=== PATIENT | female | born 1935 | race Caucasian/White ===

== ENCOUNTER 2022-02-21 11:41 | Inpatient (IN) | payer MEDICARE ==
[~2022-02-21] VITALS: Ht 170.2 cm; Wt 53.0 kg
--- NOTE | 2022-02-21 13:20 | RAD ---
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 The femoral acetabular components are well-seated. The visuali zed osseous structures appear grossly intact. IMPRESSION: Right hip total arthroplasty. No acute findings. Electronically signed by: Silver Rutledge III, MD (02/21/2022 1:17 PM) VAIBHAV
[2022-02-21 13:48] LABS: BASO # 0.1 x10^3/uL (0.0-0.2); BASO % 0 % (0-3); EOS # 0.1 x10^3/uL (0.0-0.7); EOS % 0 % (0-3); HEMATOCRIT 37.6 % (36.0-47.0); HEMOGLOBIN 11.8 g/dL (12.0-15.5); LYMPH # 1.4 x10^3/uL (1.0-4.8); LYMPH % 10 % (24-48); MEAN CORPUSCULAR HEMOGLOBIN 26 pg (25-35); MEAN CORPUSCULAR HGB CONC 31 g/dL (31-37); MEAN CORPUSCULAR VOLUME 82 fL (79-100); MONO # 1.1 x10^3/uL (0.0-1.1); MONO % 8 % (0-9); NEUT # 11.7 x10^3/uL (1.8-7.7); NEUT % 82 % (31-73); PLATELET COUNT 516 x10^3/uL (140-400); RED BLOOD COUNT 4.59 x10^6/uL (3.50-5.40); RED CELL DISTRIBUTION WIDTH 17.7 % (11.5-14.5); WHITE BLOOD COUNT 14.4 x10^3/uL (4.0-11.0)
[2022-02-21 13:58] LABS: CALCIUM 8.8 mg/dL (8.5-10.1); CREATININE 0.4 mg/dL (0.6-1.0); GFR 151.3; POTASSIUM 3.1 mmol/L (3.5-5.1)
[2022-02-21 14:02] LABS: ALBUMIN 2.3 g/dL (3.4-5.0); ALBUMIN/GLOBULIN RATIO 0.7 (1.0-1.7); TOTAL BILIRUBIN 0.5 mg/dL (0.2-1.0); TOTAL PROTEIN 5.8 g/dL (6.4-8.2)
[2022-02-21] MEDS ORDERED: ONDANSETRON PF 4 MG/2 ML VIAL. IVP PRN (15:15)
[2022-02-21] MEDS ORDERED: fentaNYL PF VIAL 100 MCG/2 ML VIAL IVP PRN (15:15)
--- NOTE | 2022-02-21 15:18 | PHYS DOC ---
Past Medical History Additional Past Medical Histor: unable to obtain from patient Past Surgical History: Other Additional Past Surgical Histo: right ORIF Smoking Status: Never Smoker Alcohol Use: None Adult General Chief Complaint Chief Complaint: HIP PAIN HPI HPI Patient is a 86 year old female presenting to the emergency department for evaluation of failure to thrive she has been in and out of [facility] in a night rehab facility since the end of October and she had a hip fracture and she was sent home from [facility] recently and has been unable to ambulate and is a full assist per the son and he is worried about her memory as well as she is more confused. Patient is complaining of right hip pain today but there is no fall. Patient denies headache neck pain chest pain abdominal pain unilateral weakness numbness tingling or other symptoms. She is in no acute distress with normal vital signs. Review of Systems Review of Systems Constitutional: Denies fever or chills [] Eyes: Denies change in visual acuity, redness, or eye pain [] HENT: Denies nasal congestion or sore throat [] Respiratory: Denies cough or shortness of breath [] Cardiovascular: No additional information not addressed in HPI [] GI: Denies abdominal pain, nausea, vomiting, bloody stools or diarrhea [] : Denies dysuria or hematuria [] Musculoskeletal: Positive right hip joint pain Integument: Denies rash or skin lesions [] Neurologic: Denies headache, focal weakness or sensory changes [] All other systems were reviewed and found to be within normal limits, except as documented in this note. Physical Exam Physical Exam Constitutional: Chronically ill-appearing female in no acute distress HENT: Normocephalic, atraumatic, bilateral external ears normal, oropharynx mo ist, no oral exudates, nose normal. [] Eyes: PERRLA, EOMI, conjunctiva normal, no discharge. [] Neck: Normal range of motion, no tenderness, supple, no stridor. [] Cardiovascular:Heart rate regular rhythm, no murmur [] Lungs & Thorax: Bilateral breath sounds clear to auscultation [] Abdomen: Bowel sounds normal, soft, no tenderness, no masses, no pulsatile masses. [] Skin: Warm, dry, no erythema, no rash. [] Back: No tenderness, no CVA tenderness. [] Extremities: Pain to palpation and range of motion of right hip Neurologic: Alert and oriented X 3, normal motor function, normal sensory function, no focal deficits noted. [] Current Patient Data Lab Values Laboratory Tests Test 02/21/22 13:30 White Blood Count 14.4 x10^3/uL (4.0-11.0) H Red Blood Count 4.59 x10^6/uL (3.50-5.40) Hemoglobin 11.8 g/dL (12.0-15.5) L Hematocrit 37.6 % (36.0-47.0) Mean Corpuscular Volume 82 fL (79-100) Mean Corpuscular Hemoglobin 26 pg (25-35) Mean Corpuscular Hemoglobin Concent 31 g/dL (31-37) Red Cell Distribution Width 17.7 % (11.5-14.5) H Platelet Count 516 x10^3/uL (140-400) H Neutrophils (%) (Auto) 82 % (31-73) H Lymphocytes (%) (Auto) 10 % (24-48) L Monocytes (%) (Auto) 8 % (0-9) Eosinophils (%) (Auto) 0 % (0-3) Basophils (%) (Auto) 0 % (0-3) Neutrophils # (Auto) 11.7 x10^3/uL (1.8-7.7) H Lymphocytes # (Auto) 1.4 x10^3/uL (1.0-4.8) Monocytes # (Auto) 1.1 x10^3/uL (0.0-1.1) Eosinophils # (Auto) 0.1 x10^3/uL (0.0-0.7) Basophils # (Auto) 0.1 x10^3/uL (0.0-0.2) Prothrombin Time 18.0 SEC (11.7-14.0) H Prothrombin Time INR 1.5 (0.8-1.1) H Activated Partial Thromboplast Time 34 SEC (24-38) Sodium Level 140 mmol/L (136-145) Potassium Level 3.1 mmol/L (3.5-5.1) L Chloride Level 102 mmol/L (98-107) Carbon Dioxide Level 25 mmol/L (21-32) Anion Gap 13 (6-14) Blood Urea Nitrogen 6 mg/dL (7-20) L Creatinine 0.4 mg/dL (0.6-1.0) L Estimated GFR (Cockcroft-Gault) 151.3 BUN/Creatinine Ratio 15 (6-20) Glucose Level 107 mg/dL (70-99) H Calcium Level 8.8 mg/dL (8.5-10.1) Total Bilirubin 0.5 mg/dL (0.2-1.0) Aspartate Amino Transferase (AST) 19 U/L (15-37) Alanine Aminotransferase (ALT) 22 U/L (14-59) Alkaline Phosphatase 90 U/L (46-116) Troponin I High Sensitivity 15 ng/L (4-50) Total Protein 5.8 g/dL (6.4-8.2) L Albumin 2.3 g/dL (3.4-5.0) L Albumin/Globulin Ratio 0.7 (1.0-1.7) L Thyroid Stimulating Hormone (TSH) 3.207 uIU/mL (0.358-3.74) Laboratory Tests 02/21/22 13:30 Laboratory Tests 02/21/22 13:30 EKG EKG Irregularly irregular rhythm at 70 bpm with inverted T waves in inferior and anterior leads with no ST elevation or depression. Radiology/Procedures Radiology/Procedures [] Course & Med Decision Making Course & Med Decision Making Patient with leukocytosis but no urinalysis has returned yet. Patient is hypokalemic but her hip x-ray is normal. Given her abnormal work-up and failure to thrive we will plan for admission for further observation and treatment Dragon Disclaimer Dragon Disclaimer This electronic medical record was generated, in whole or in part, using a voice recognition dictation system. Departure Departure Impression: Primary Impression: Failure to thrive in adult Additional Impressions: Inability to ambulate due to multiple joints Leukocytosis Hypokalemia Disposition: ADMITTED INPATIENT Admitting Physician: HIMS Condition: STABLE Referrals: NO PCP (PCP) Problem Qualifiers AKSHAT CASTELLON DO Feb 21, 2022 15:18
[2022-02-21] MEDS ORDERED: POTASSIUM CL 40MEQ IN 0.9%NACL 1,000 ML IV ONE (16:30)
[2022-02-21 19:40] VITALS: BP 164/53
--- NOTE | 2022-02-21 20:08 | PDOC1 ---
History and Physical Date of Admission Date of Admission DATE: 02/21/22 TIME: 20:02 History of Present Illness History of Present Illness Ms. Carreno is a 86 year old female admit for right leg pain and fall risk, ER daignosis of failure to thrive, She thought initially this was [facility], but can get reoriented. Recent hip fracture and repair and she was sent home from [facility] rehab recently and has been unable to ambulate and is a full assist per the son and he is worried about her memory as well as she is more confused. She has right hip pain, adn this has been ongoign, likely, Xray looks stable. Current Problem List Problem List Problems Medical Problems: (1) Failure to thrive in adult Status: Acute (2) Hypokalemia Status: Acute (3) Inability to ambulate due to multiple joints Status: Acute (4) Leukocytosis Status: Acute Current Medications Current Medications Current Medications Ondansetron HCl (Zofran) 4 mg PRN Q8HRS PRN IVP NAUSEA/VOMITING; Start 02/21/22 at 15:15; Stop 02/22/22 at 15:14 Fentanyl Citrate (Fentanyl 2ml Vial) 50 mcg PRN Q1HR PRN IVP PAIN; Start 02/21/22 at 15:15; Stop 02/22/22 at 15:14 Potassium Chloride/Sodium Chloride 1,000 ml @ 75 mls/hr [id number] ONCE IV Last administered on 02/21/22at 18:37; Start 02/21/22 at 16:30; Stop 02/22/22 at 05:49 Allergies Allergies: Coded Allergies: Penicillins (Verified Allergy, Intermediate, 02/21/22) Sulfa (Sulfonamide Antibiotics) (Verified Allergy, Intermediate, 02/21/22) ROS Review of System Patient denies headache neck pain chest pain abdominal pain unilateral weakness numbness tingling or other symptoms. She is in no acute distress with normal vital signs. General: No: Chills, Night Sweats, Fatigue, Malaise, Appetite, Other PSYCHOLOGICAL ROS: No: Anxiety, Behavioral Disorder, Concentration difficultie, Decreased libido, Depression, Disorientation, Hallucinations, Hostility, Irritablity, Memory difficulties, Mood Swings, Obsessive thoughts, Physical abuse, Sexual abuse, Sleep disturbances, Suicidal ideation, Other Eyes: No Blurry vision, No Decreased vision, No Double vision, No Dry eyes, No Excessive tearing, No Eye Pain, No Itchy Eyes, No Loss of vision, No Photophobia, No Scotomata, No Uses contacts, No Uses glasses, No Other HEENT: No: Heacaches, Visual Changes, Hearing change, Nasal congestion, Nasal discharge, Oral lesions, Sinus pain, Sore Throat, Epistaxis, Sneezing, Snoring, Tinnitus, Vertigo, Vocal changes, Other Respiratory: No: Cough, Hemoptysis, Orthopnea, Pleuritic Pain, Shortness of breath, SOB with excertion, Sputum Changes, Stridor, Tachypnea, Wheezing, Other Cardiovascular: No Chest Pain, No Palpitations, No Orthopnea, No Paroxysmal Noc. Dyspnea, No Edema, No Lt Headedness, No Other Gastrointestinal: No Nausea, No Vomiting, No Abdominal Pain, No Diarrhea, No Constipation, No Melena, No Hematochezia, No Other Genitourinary: No Dysuria, No Frequency, No Incontinence, No Hematuria, No Retention, No Discharge, No Urgency, No Pain, No Flank Pain, No Other, No , No , No , No , No , No , No Musculoskeletal: Yes Gait Disturbance, Yes Joint Pain, Yes Joint Stiffness, Yes Muscular Weakness Neurological: Yes Gait Disturbance; No Behavorial Changes, No Bowel/Bladder ControlChng, No Confusion, No Dizziness, No Impaired Coord/balance, No Memory Loss, No Numbness/Tingling, No Seizures, No Speech Problems, No Tremors, No Visual Changes, No Weakness, No Other Skin: No Dry Skin, No Eczema, No Hair Changes, No Lumps, No Mole Changes, No Mottling, No Nail Changes, No Pruritus, No Rash, No Skin Lesion Changes, No O ther, No Acne Physical Exam General: Alert, Cooperative, Other (not oriented, 1/3) Lungs: Clear to auscultation Heart: no murmurs Abdomen: Normal bowel sounds, Soft Extremities: No clubbing, No edema, Normal pulses Skin: No rashes Neuro: Normal speech, Normal tone, Sensation intact Psych/Mental Status: Mental status NL, Mood NL (pleasnat ) Labs Labs Laboratory Tests Test 02/21/22 13:30 White Blood Count 14.4 x10^3/uL (4.0-11.0) Red Blood Count 4.59 x10^6/uL (3.50-5.40) Hemoglobin 11.8 g/dL (12.0-15.5) Hematocrit 37.6 % (36.0-47.0) Mean Corpuscular Volume 82 fL (79-100) Mean Corpuscular Hemoglobin 26 pg (25-35) Mean Corpuscular Hemoglobin Concent 31 g/dL (31-37) Red Cell Distribution Width 17.7 % (11.5-14.5) Platelet Count 516 x10^3/uL (140-400) Neutrophils (%) (Auto) 82 % (31-73) Lymphocytes (%) (Auto) 10 % (24-48) Monocytes (%) (Auto) 8 % (0-9) Eosinophils (%) (Auto) 0 % (0-3) Basophils (%) (Auto) 0 % (0-3) Neutrophils # (Auto) 11.7 x10^3/uL (1.8-7.7) Lymphocytes # (Auto) 1.4 x10^3/uL (1.0-4.8) Monocytes # (Auto) 1.1 x10^3/uL (0.0-1.1) Eosinophils # (Auto) 0.1 x10^3/uL (0.0-0.7) Basophils # (Auto) 0.1 x10^3/uL (0.0-0.2) Prothrombin Time 18.0 SEC (11.7-14.0) Prothromb Time International Ratio 1.5 (0.8-1.1) Activated Partial Thromboplast Time 34 SEC (24-38) Sodium Level 140 mmol/L (136-145) Potassium Level 3.1 mmol/L (3.5-5.1) Chloride Level 102 mmol/L (98-107) Carbon Dioxide Level 25 mmol/L (21-32) Anion Gap 13 (6-14) Blood Urea Nitrogen 6 mg/dL (7-20) Creatinine 0.4 mg/dL (0.6-1.0) Estimated GFR (Cockcroft-Gault) 151.3 BUN/Creatinine Ratio 15 (6-20) Glucose Level 107 mg/dL (70-99) Calcium Level 8.8 mg/dL (8.5-10.1) Total Bilirubin 0.5 mg/dL (0.2-1.0) Aspartate Amino Transf (AST/SGOT) 19 U/L (15-37) Alanine Aminotransferase (ALT/SGPT) 22 U/L (14-59) Alkaline Phosphatase 90 U/L (46-116) Troponin I High Sensitivity 15 ng/L (4-50) FL-Hdb-W-Type Natriuretic Peptide 1947 pg/mL (0-449) Total Protein 5.8 g/dL (6.4-8.2) Albumin 2.3 g/dL (3.4-5.0) Albumin/Globulin Ratio 0.7 (1.0-1.7) Thyroid Stimulating Hormone (TSH) 3.207 uIU/mL (0.358-3.74) Laboratory Tests Test 02/21/22 13:30 White Blood Count 14.4 x10^3/uL (4.0-11.0) Red Blood Count 4.59 x10^6/uL (3.50-5.40) Hemoglobin 11.8 g/dL (12.0-15.5) Hematocrit 37.6 % (36.0-47.0) Mean Corpuscular Volume 82 fL (79-100) Mean Corpuscular Hemoglobin 26 pg (25-35) Mean Corpuscular Hemoglobin Concent 31 g/dL (31-37) Red Cell Distribution Width 17.7 % (11.5-14.5) Platelet Count 516 x10^3/uL (140-400) Neutrophils (%) (Auto) 82 % (31-73) Lymphocytes (%) (Auto) 10 % (24-48) Monocytes (%) (Auto) 8 % (0-9) Eosinophils (%) (Auto) 0 % (0-3) Basophils (%) (Auto) 0 % (0-3) Neutrophils # (Auto) 11.7 x10^3/uL (1.8-7.7) Lymphocytes # (Auto) 1.4 x10^3/uL (1.0-4.8) Monocytes # (Auto) 1.1 x10^3/uL (0.0-1.1) Eosinophils # (Auto) 0.1 x10^3/uL (0.0-0.7) Basophils # (Auto) 0.1 x10^3/uL (0.0-0.2) Prothrombin Time 18.0 SEC (11.7-14.0) Prothromb Time International Ratio 1.5 (0.8-1.1) Activated Partial Thromboplast Time 34 SEC (24-38) Sodium Level 140 mmol/L (136-145) Potassium Level 3.1 mmol/L (3.5-5.1) Chloride Level 102 mmol/L (98-107) Carbon Dioxide Level 25 mmol/L (21-32) Anion Gap 13 (6-14) Blood Urea Nitrogen 6 mg/dL (7-20) Creatinine 0.4 mg/dL (0.6-1.0) Estimated GFR (Cockcroft-Gault) 151.3 BUN/Creatinine Ratio 15 (6-20) Glucose Level 107 mg/dL (70-99) Calcium Level 8.8 mg/dL (8.5-10.1) Total Bilirubin 0.5 mg/dL (0.2-1.0) Aspartate Amino Transf (AST/SGOT) 19 U/L (15-37) Alanine Aminotransferase (ALT/SGPT) 22 U/L (14-59) Alkaline Phosphatase 90 U/L (46-116) Troponin I High Sensitivity 15 ng/L (4-50) XQ-Cvq-Z-Type Natriuretic Peptide 1947 pg/mL (0-449) Total Protein 5.8 g/dL (6.4-8.2) Albumin 2.3 g/dL (3.4-5.0) Albumin/Globulin Ratio 0.7 (1.0-1.7) Thyroid Stimulating Hormone (TSH) 3.207 uIU/mL (0.358-3.74) VTE Prophylaxis Ordered VTE Prophylaxis Devices: No VTE Pharmacological Prophylaxi: Yes Assessment/Plan Assessment/Plan muscle weakness prior right hip fracture, right leg pain dementia hypokalemia severe malnutrition, alb 2.3 try PT and OT prob hospice referral Justifications for Admission Other Justification RUPA LAKE MD Feb 21, 2022 20:07
[2022-02-21] MEDS ORDERED: POLYETHYLENE GLYCOL 3350 17 GM PACKET. PO PRN (20:15)
[2022-02-21] MEDS: ENOXAPARIN 30 MG/0.3 ML SYRINGE. SQ SCH (21:39)
[2022-02-21 23:25] VITALS: BP 156/63
--- NOTE | 2022-02-22 01:01 | EKG ---
[facility] [address] [place] [address] Test Date: 2022-02-21 Test Time: 13:19:16 Pat Name: MARIA TERESA ALVAREZ Department: Room: 434 1 Gender: F Exploitation Analyst: : 1935 Requested By: AKSHAT CASTELLON Order Number: [id number] Reading MD: Alberto Asif MD Measurements Intervals [place] Rate: 78 P: MA: QRS: 40 QRSD: 78 T: -80 QT: 366 QTc: 421 Interpretive Statements Atrial fibrillation with controlled ventricular response NON-SPECIFIC ST/T CHANGES Electronically Signed On 02-25-2022 7:16:19 CDT by Alberto Asif MD
[2022-02-22 03:21] VITALS: BP 141/62
[2022-02-22 07:00] VITALS: BP 152/69
[2022-02-22 07:21] LABS: BASO % 0 % (0-3); EOS % 1 % (0-3); HEMATOCRIT 33.8 % (36.0-47.0); HEMOGLOBIN 10.7 g/dL (12.0-15.5); LYMPH # 1.5 x10^3/uL (1.0-4.8); LYMPH % 14 % (24-48); MEAN CORPUSCULAR HEMOGLOBIN 26 pg (25-35); MEAN CORPUSCULAR HGB CONC 32 g/dL (31-37); MEAN CORPUSCULAR VOLUME 82 fL (79-100); MONO % 9 % (0-9); NEUT # 7.8 x10^3/uL (1.8-7.7); NEUT % 76 % (31-73); PLATELET COUNT 472 x10^3/uL (140-400); RED BLOOD COUNT 4.11 x10^6/uL (3.50-5.40); RED CELL DISTRIBUTION WIDTH 17.4 % (11.5-14.5); WHITE BLOOD COUNT 10.3 x10^3/uL (4.0-11.0)
[2022-02-22 07:39] LABS: ALBUMIN 1.9 g/dL (3.4-5.0); ALBUMIN/GLOBULIN RATIO 0.5 (1.0-1.7); CALCIUM 8.3 mg/dL (8.5-10.1); CREATININE 0.4 mg/dL (0.6-1.0); GFR 151.3; POTASSIUM 3.4 mmol/L (3.5-5.1); TOTAL BILIRUBIN 0.4 mg/dL (0.2-1.0); TOTAL PROTEIN 5.5 g/dL (6.4-8.2)
[2022-02-22] MEDS: DOCUSATE SODIUM 100 MG CAPSULE. PO SCH (09:26)
[2022-02-22] MEDS ORDERED: POTASSIUM CHLORIDE 20 MEQ TABLET.ER. PO ONE (09:30)
[2022-02-22 11:00] VITALS: BP 157/66
--- NOTE | 2022-02-22 11:37 | PDOC ---
[employer] PROGRESS NOTE Date of Service DOS: DATE: 02/22/22 TIME: 11:36 Chief Complaint Chief Complaint Assessment/Plan muscle weakness prior right hip fracture, right leg pain dementia hypokalemia severe malnutrition, alb 2.3 Pending PT OT evaluation prob hospice referral History of Present Illness History of Present Illness 86 year old female admit for right leg pain and fall risk, ER daignosis of failure to thrive, She thought initially this was [facility], but can get reoriented. Recent hip fracture and repair and she was sent home from [facility] rehab recently and has been unable to ambulate and is a full assist per the son and he is worried about her memory as well as she is more confused. She has right hip pain, adn this has been ongoign, likely, Xray looks stable. 02/22/2022 No acute events overnight. Patient seen examined bedside. Potassium 3.4 replaced with PO KCl. Pending PT OT evaluation. Patient sitting up on bedside and alert and awake and oriented. Pain is well controlled. Vitals/I&O Vitals/I&O: Vital Signs Date Time Temp Pulse Resp B/P (MAP) Pulse Ox O2 Delivery O2 Flow Rate FiO2 02/22/22 07:00 97.8 95 18 152/69 (96) 97 Room Air 97.8 I & O 02/21/22 02/21/22 02/22/22 15:00 23:00 07:00 Intake Total 360 ml Balance 360 ml Physical Exam General: Alert, Cooperative, Other (not oriented, 1/3) Abdomen: Normal bowel sounds, Soft Extremities: No clubbing, No edema, Normal pulses Skin: No rashes Labs Labs: Laboratory Tests Test 02/21/22 13:30 02/22/22 06:15 White Blood Count 14.4 x10^3/uL (4.0-11.0) 10.3 x10^3/uL (4.0-11.0) Red Blood Count 4.59 x10^6/uL (3.50-5.40) 4.11 x10^6/uL (3.50-5.40) Hemoglobin 11.8 g/dL (12.0-15.5) 10.7 g/dL (12.0-15.5) Hematocrit 37.6 % (36.0-47.0) 33.8 % (36.0-47.0) Mean Corpuscular Volume 82 fL (79-100) 82 fL (79-100) Mean Corpuscular Hemoglobin 26 pg (25-35) 26 pg (25-35) Mean Corpuscular Hemoglobin Concent 31 g/dL (31-37) 32 g/dL (31-37) Red Cell Distribution Width 17.7 % (11.5-14.5) 17.4 % (11.5-14.5) Platelet Count 516 x10^3/uL (140-400) 472 x10^3/uL (140-400) Neutrophils (%) (Auto) 82 % (31-73) 76 % (31-73) Lymphocytes (%) (Auto) 10 % (24-48) 14 % (24-48) Monocytes (%) (Auto) 8 % (0-9) 9 % (0-9) Eosinophils (%) (Auto) 0 % (0-3) 1 % (0-3) Basophils (%) (Auto) 0 % (0-3) 0 % (0-3) Neutrophils # (Auto) 11.7 x10^3/uL (1.8-7.7) 7.8 x10^3/uL (1.8-7.7) Lymphocytes # (Auto) 1.4 x10^3/uL (1.0-4.8) 1.5 x10^3/uL (1.0-4.8) Monocytes # (Auto) 1.1 x10^3/uL (0.0-1.1) 1.0 x10^3/uL (0.0-1.1) Eosinophils # (Auto) 0.1 x10^3/uL (0.0-0.7) 0.0 x10^3/uL (0.0-0.7) Basophils # (Auto) 0.1 x10^3/uL (0.0-0.2) 0.0 x10^3/uL (0.0-0.2) Prothrombin Time 18.0 SEC (11.7-14.0) Prothromb Time International Ratio 1.5 (0.8-1.1) Activated Partial Thromboplast Time 34 SEC (24-38) Sodium Level 140 mmol/L (136-145) 142 mmol/L (136-145) Potassium Level 3.1 mmol/L (3.5-5.1) 3.4 mmol/L (3.5-5.1) Chloride Level 102 mmol/L (98-107) 108 mmol/L (98-107) Carbon Dioxide Level 25 mmol/L (21-32) 26 mmol/L (21-32) Anion Gap 13 (6-14) 8 (6-14) Blood Urea Nitrogen 6 mg/dL (7-20) 5 mg/dL (7-20) Creatinine 0.4 mg/dL (0.6-1.0) 0.4 mg/dL (0.6-1.0) Estimated GFR (Cockcroft-Gault) 151.3 151.3 BUN/Creatinine Ratio 15 (6-20) 13 (6-20) Glucose Level 107 mg/dL (70-99) 90 mg/dL (70-99) Calcium Level 8.8 mg/dL (8.5-10.1) 8.3 mg/dL (8.5-10.1) Total Bilirubin 0.5 mg/dL (0.2-1.0) 0.4 mg/dL (0.2-1.0) Aspartate Amino Transf (AST/SGOT) 19 U/L (15-37) 19 U/L (15-37) Alanine Aminotransferase (ALT/SGPT) 22 U/L (14-59) 21 U/L (14-59) Alkaline Phosphatase 90 U/L (46-116) 77 U/L (46-116) Troponin I High Sensitivity 15 ng/L (4-50) OX-Liu-S-Type Natriuretic Peptide 1947 pg/mL (0-449) Total Protein 5.8 g/dL (6.4-8.2) 5.5 g/dL (6.4-8.2) Albumin 2.3 g/dL (3.4-5.0) 1.9 g/dL (3.4-5.0) Albumin/Globulin Ratio 0.7 (1.0-1.7) 0.5 (1.0-1.7) Thyroid Stimulating Hormone (TSH) 3.207 uIU/mL (0.358-3.74) Assessment and Plan Assessmemt and Plan Problems Medical Problems: (1) Failure to thrive in adult Status: Acute (2) Hypokalemia Status: Acute (3) 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 Medications: Current Medications Medications (Trade) Dose Ordered Sig/Jess Route PRN Reason Start Time Stop Time Status Last Admin Dose Admin Potassium Chloride/Sodium Chloride 1,000 ml @ 75 mls/hr [id number] ONCE IV 02/21/22 16:30 02/22/22 05:50 DC 02/21/22 18:37 Enoxaparin Sodium (Lovenox 30mg Syringe) 30 mg Q24H SQ 02/21/22 21:00 02/21/22 21:39 Docusate Sodium (Colace) 100 mg DAILY PO 02/22/22 09:00 02/22/22 09:26 Potassium Chloride (Klor-Con) 40 meq 1X ONCE PO 02/22/22 09:30 02/22/22 09:31 DC 02/22/22 10:00 Justifications for Admission Other Justification OWEN JENKINS MD Feb 22, 2022 11:37
[2022-02-22 15:00] VITALS: BP 156/69
[2022-02-22 19:00] VITALS: BP 123/84
[2022-02-22] MEDS: ENOXAPARIN 30 MG/0.3 ML SYRINGE. SQ SCH (20:42)
[2022-02-22 23:00] VITALS: BP 138/83
[2022-02-23 07:00] VITALS: BP 124/71
[2022-02-23] MEDS: DOCUSATE SODIUM 100 MG CAPSULE. PO SCH (07:27)
[2022-02-23 11:00] VITALS: BP 152/80
--- NOTE | 2022-02-23 13:20 | PDOC ---
[employer] PROGRESS NOTE Date of Service DOS: DATE: 02/23/22 TIME: 13:19 Chief Complaint Chief Complaint muscle weakness, acquired, fall risk, poor mobility prior right hip fracture, right leg pain dementia, was acute encephalopahty on admit and is now improved, hypokalemia severe malnutrition, alb 2.3 Pending PT OT evaluation - will need skilled, try rehab, she reports she has done before History of Present Illness History of Present Illness 86 year old female admit for right leg pain and fall risk, ER daignosis of failure to thrive, She thought initially this was [facility], but can get reoriented. Recent hip fracture and repair and she was sent home from [facility] rehab recently and has been unable to ambulate and is a full assist per the son and he is worried about her memory as well as she is more confused. She has right hip pain, adn this has been ongoign, likely, Xray looks stable. 02/22/2022 No acute events overnight. Patient seen examined bedside. Potassium 3.4 replaced with PO KCl. Pending PT OT evaluation. Patient sitting up on bedside and alert and awake and oriented. Pain is well controlled. Vitals/I&O Vitals/I&O: Vital Signs Date Time Temp Pulse Resp B/P (MAP) Pulse Ox O2 Delivery O2 Flow Rate FiO2 02/23/22 11:00 98.3 90 16 152/80 (104) 96 Room Air 98.3 I & O 02/22/22 02/22/22 02/23/22 15:00 23:00 07:00 Intake Total 200 ml Balance 200 ml Physical Exam General: Alert, Cooperative, No acute distress, Other (better oriented, better recall than on admit, ) Abdomen: Normal bowel sounds, Soft Extremities: No clubbing, No edema, Normal pulses Skin: No rashes, Other (lesion on right nasal, external taht looks like melanoma) Assessment and Plan Assessmemt and Plan Problems Medical Problems: (1) Failure to thrive in adult Status: Acute (2) Hypokalemia Status: Acute (3) 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 Justifications for Admission Other Justification RUPA LAKE MD Feb 23, 2022 13:20
[2022-02-23 15:00] VITALS: BP 133/80
[2022-02-23 19:00] VITALS: BP 124/76
[2022-02-23] MEDS: ENOXAPARIN 30 MG/0.3 ML SYRINGE. SQ SCH (20:47)
[2022-02-23 23:25] VITALS: BP 147/96
[2022-02-24 03:00] VITALS: BP 133/88
[2022-02-24 07:15] VITALS: BP 146/75
[2022-02-24] MEDS: DOCUSATE SODIUM 100 MG CAPSULE. PO SCH (08:02)
[2022-02-24 08:19] LABS: BASO % 0 % (0-3); EOS # 0.2 x10^3/uL (0.0-0.7); EOS % 2 % (0-3); HEMATOCRIT 36.8 % (36.0-47.0); HEMOGLOBIN 11.4 g/dL (12.0-15.5); LYMPH # 2.3 x10^3/uL (1.0-4.8); LYMPH % 22 % (24-48); MEAN CORPUSCULAR HEMOGLOBIN 25 pg (25-35); MEAN CORPUSCULAR HGB CONC 31 g/dL (31-37); MEAN CORPUSCULAR VOLUME 82 fL (79-100); MONO # 1.2 x10^3/uL (0.0-1.1); MONO % 11 % (0-9); NEUT # 6.7 x10^3/uL (1.8-7.7); NEUT % 65 % (31-73); PLATELET COUNT 487 x10^3/uL (140-400); RED BLOOD COUNT 4.48 x10^6/uL (3.50-5.40); WHITE BLOOD COUNT 10.3 x10^3/uL (4.0-11.0)
[2022-02-24 08:32] LABS: ALBUMIN/GLOBULIN RATIO 0.6 (1.0-1.7); CALCIUM 8.3 mg/dL (8.5-10.1); CREATININE 0.4 mg/dL (0.6-1.0); GFR 151.3; POTASSIUM 3.3 mmol/L (3.5-5.1); TOTAL BILIRUBIN 0.3 mg/dL (0.2-1.0); TOTAL PROTEIN 5.6 g/dL (6.4-8.2)
[2022-02-24 11:01] VITALS: BP 151/74
--- NOTE | 2022-02-24 11:10 | PDOC ---
[employer] PROGRESS NOTE Date of Service DOS: DATE: 02/24/22 TIME: 11:07 Chief Complaint Chief Complaint Recent right hip fracture Status post right hip ORIF recently Possible adult failure to thrive Weakness Dementia Hypokalemia Malnutrition Recent COVID? (Patient is not a great historian but states she had) History of Present Illness History of Present Illness 02/25/2020 Patient seen and examined She is pleasantly confused A lesion is noted on the right side of her nose I suspect it is a basal cell carcinoma Chart review Discussed with RN Discussed with case 86 year old female admit for right leg pain and fall risk, ER daignosis of failure to thrive, She thought initially this was [facility], but can get reoriented. Recent hip fracture and repair and she was sent home from [facility] rehab recently and has been unable to ambulate and is a full assist per the son and he is worried about her memory as well as she is more confused. She has right hip pain, adn this has been ongoign, likely, Xray looks stable. 02/22/2022 No acute events overnight. Patient seen examined bedside. Potassium 3.4 replaced with PO KCl. Pending PT OT evaluation. Patient sitting up on bedside and alert and awake and oriented. Pain is well controlled. Vitals/I&O Vitals/I&O: Vital Signs Date Time Temp Pulse Resp B/P (MAP) Pulse Ox O2 Delivery O2 Flow Rate FiO2 02/24/22 11:01 98.3 110 18 151/74 (99) 96 Room Air 98.3 I & O 02/23/22 02/23/22 02/24/22 15:00 23:00 07:00 Intake Total 100 ml Balance 100 ml Physical Exam General: Alert, Cooperative, No acute distress, Other (better oriented, better recall than on admit, ) Abdomen: Normal bowel sounds, Soft Extremities: No clubbing, No edema, Normal pulses Skin: No rashes, Other (lesion on right nasal, external taht looks like melanoma) Labs Labs: Laboratory Tests Test 02/24/22 07:25 White Blood Count 10.3 x10^3/uL (4.0-11.0) Red Blood Count 4.48 x10^6/uL (3.50-5.40) Hemoglobin 11.4 g/dL (12.0-15.5) Hematocrit 36.8 % (36.0-47.0) Mean Corpuscular Volume 82 fL (79-100) Mean Corpuscular Hemoglobin 25 pg (25-35) Mean Corpuscular Hemoglobin Concent 31 g/dL (31-37) Red Cell Distribution Width 18.0 % (11.5-14.5) Platelet Count 487 x10^3/uL (140-400) Neutrophils (%) (Auto) 65 % (31-73) Lymphocytes (%) (Auto) 22 % (24-48) Monocytes (%) (Auto) 11 % (0-9) Eosinophils (%) (Auto) 2 % (0-3) Basophils (%) (Auto) 0 % (0-3) Neutrophils # (Auto) 6.7 x10^3/uL (1.8-7.7) Lymphocytes # (Auto) 2.3 x10^3/uL (1.0-4.8) Monocytes # (Auto) 1.2 x10^3/uL (0.0-1.1) Eosinophils # (Auto) 0.2 x10^3/uL (0.0-0.7) Basophils # (Auto) 0.0 x10^3/uL (0.0-0.2) Sodium Level 138 mmol/L (136-145) Potassium Level 3.3 mmol/L (3.5-5.1) Chloride Level 103 mmol/L (98-107) Carbon Dioxide Level 27 mmol/L (21-32) Anion Gap 8 (6-14) Blood Urea Nitrogen 4 mg/dL (7-20) Creatinine 0.4 mg/dL (0.6-1.0) Estimated GFR (Cockcroft-Gault) 151.3 BUN/Creatinine Ratio 10 (6-20) Glucose Level 95 mg/dL (70-99) Calcium Level 8.3 mg/dL (8.5-10.1) Total Bilirubin 0.3 mg/dL (0.2-1.0) Aspartate Amino Transf (AST/SGOT) 27 U/L (15-37) Alanine Aminotransferase (ALT/SGPT) 19 U/L (14-59) Alkaline Phosphatase 85 U/L (46-116) Total Protein 5.6 g/dL (6.4-8.2) Albumin 2.0 g/dL (3.4-5.0) Albumin/Globulin Ratio 0.6 (1.0-1.7) Assessment and Plan Assessmemt and Plan Problems Medical Problems: (1) Failure to thrive in adult Status: Acute (2) Hypokalemia Status: Acute (3) 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 (Patient is not a great historian but states she had) Plan PT OT Home meds DVT prophylaxis Full code Encourage p.o. intake Trend labs nursing home evaluation We will consult the wound care team regarding the lesion on the side of her nose Long-term prognosis guarded Comment Review of Relevant I have reviewed the following items yessenia (where applicable) has been applied. Justifications for Admission Other Justification WIL REINA III DO Feb 24, 2022 11:10
[2022-02-24 15:00] VITALS: BP 143/59
[2022-02-24 19:00] VITALS: BP 149/62
[2022-02-24] MEDS: ENOXAPARIN 30 MG/0.3 ML SYRINGE. SQ SCH (21:04)
[2022-02-24 23:00] VITALS: BP 159/77
[2022-02-25 03:00] VITALS: BP 157/75
[2022-02-25 07:00] VITALS: BP 145/66
[2022-02-25] MEDS: DOCUSATE SODIUM 100 MG CAPSULE. PO SCH (07:07)
--- NOTE | 2022-02-25 10:28 | PDOC ---
[facility] [facility] PROGRESS NOTE Date of Service DOS: DATE: 02/25/22 TIME: 10:26 Chief Complaint Chief Complaint Recent right hip fracture Status post right hip ORIF recently Possible adult failure to thrive Weakness Dementia Hypokalemia Malnutrition Recent COVID? (Patient is not a great historian but states she had) History of Present Illness History of Present Illness 02/25/2022 Patient seen and examined She is still extremely weak pleasantly confused Discussed with RN and case management Patient does not want to go home I suspect we can get her to intermediate if she qualifies Perhaps she also needs long-term care? Chart reviewed Discussed with wound care nurse about her nasal wound yesterday 02/25/2020 Patient seen and examined She is pleasantly confused A lesion is noted on the right side of her nose I suspect it is a basal cell carcinoma Chart review Discussed with RN Discussed with case 86 year old female admit for right leg pain and fall risk, ER daignosis of failure to thrive, She thought initially this was [facility], but can get reoriented. Recent hip fracture and repair and she was sent home from [facility] rehab recently and has been unable to ambulate and is a full assist per the son and he is worried about her memory as well as she is more confused. She has right hip pain, adn this has been ongoign, likely, Xray looks stable. 02/22/2022 No acute events overnight. Patient seen examined bedside. Potassium 3.4 replaced with PO KCl. Pending PT OT evaluation. Patient sitting up on bedside and alert and awake and oriented. Pain is well controlled. Vitals/I&O Vitals/I&O: Vital Signs Date Time Temp Pulse Resp B/P (MAP) Pulse Ox O2 Delivery O2 Flow Rate FiO2 02/25/22 07:00 98.6 101 18 145/66 (92) 96 Room Air 98.6 I & O 02/24/22 02/24/22 02/25/22 15:00 23:00 07:00 Intake Total 60 ml Output Total 500 ml Balance -440 ml Physical Exam General: No acute distress, Other (better oriented, better recall than on admit, ) Abdomen: Normal bowel sounds, Soft Extremities: No clubbing, No edema, Normal pulses Skin: No rashes, Other (lesion on right nasal, external taht looks like melanoma) Assessment and Plan Assessmemt and Plan Problems Medical Problems: (1) Failure to thrive in adult Status: Acute (2) Hypokalemia Status: Acute (3) 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 (Patient is not a great historian but states she had) Plan Hoping to get her to intermediate or long-term care? For now continue the following; PT OT Home meds DVT prophylaxis Full code Encourage p.o. intake Trend labs prison evaluation Long-term prognosis good Comment Review of Relevant I have reviewed the following items yessenia (where applicable) has been applied. Justifications for Admission Other Justification WIL REINA III DO Feb 25, 2022 10:28
[2022-02-25 11:00] VITALS: BP 151/69
[2022-02-25] MEDS: oxyCODONE/APAP 5/325 1 TAB TABLET PO PRN (13:43)
[2022-02-25 15:00] VITALS: BP 140/50
[2022-02-25 19:00] VITALS: BP 133/64
[2022-02-25] MEDS: ENOXAPARIN 30 MG/0.3 ML SYRINGE. SQ SCH (21:12)
[2022-02-25 23:09] VITALS: BP 131/69
[2022-02-26 03:00] VITALS: BP 135/76
[2022-02-26 07:00] VITALS: BP 157/65
[2022-02-26] MEDS: DOCUSATE SODIUM 100 MG CAPSULE. PO SCH (07:07)
--- NOTE | 2022-02-26 10:16 | SNU/HH DC ---
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
[2022-02-26 11:00] VITALS: BP 159/72
--- NOTE | 2022-02-26 12:00 | DS ---
DATE OF DISCHARGE: 02/26/2022 ADMISSION DIAGNOSES: Failure to thrive, weakness, hypokalemia, inability to ambulate. DISCHARGE DIAGNOSES: Resolving hypokalemia, resolving weakness, early failure to thrive, history of right hip replacement, dementia, malnutrition, recent COVID. HOSPITAL COURSE: The patient is a pleasant elderly female who presented with weakness, mental status change and hypokalemia. She was admitted. We gave her IV fluids, replaced her potassium. We did physical therapy and occupational therapy. Today, I saw and examined her. She is doing better. We plan to discharge to [facility]. DISPOSITION: Skilled. ACTIVITY: As tolerated. DIET: Low-sodium. DISCHARGE MEDICATIONS: Please see the MRAD. TOTAL TIME: [address]: Ashely TID: [id number]
--- NOTE | 2022-02-26 13:37 | NUR ---
report given to Leydi HOLM
[2022-02-26 15:00] VITALS: BP 155/79
[2022-02-26] MEDS: oxyCODONE/APAP 5/325 1 TAB TABLET PO PRN (16:32)
[2022-02-26 19:00] VITALS: BP 142/55
[2022-02-26] MEDS: ENOXAPARIN 30 MG/0.3 ML SYRINGE. SQ SCH (20:02)
[2022-02-26 23:12] VITALS: BP 147/67
[2022-02-27 02:50] VITALS: BP 146/80
[2022-02-27 07:00] VITALS: BP 163/80
[2022-02-27] MEDS: DOCUSATE SODIUM 100 MG CAPSULE. PO SCH (09:16)
--- NOTE | 2022-02-27 10:18 | PDOC ---
[facility] [facility] PROGRESS NOTE Date of Service DOS: DATE: 02/27/22 TIME: 10:16 Chief Complaint Chief Complaint Recent right hip fracture Status post right hip ORIF recently Possible adult failure to thrive Weakness Dementia Hypokalemia Malnutrition Recent COVID? (Patient is not a great historian but states she had) History of Present Illness History of Present Illness 02/27/2022 Patient seen and examined Discussed with RN Discussed with case management Her discharge to [facility] had to be canceled as she was not accepted there She is now being [facility] 02/25/2022 Patient seen and examined She is still extremely weak pleasantly confused Discussed with RN and case management Patient does not want to go home I suspect we can get her to [facility] if she qualifies Perhaps she also needs long-term care? Chart reviewed Discussed with wound care nurse about her nasal wound yesterday 02/25/2020 Patient seen and examined She is pleasantly confused A lesion is noted on the right side of her nose I suspect it is a basal cell carcinoma Chart review Discussed with RN Discussed with case 86 year old female admit for right leg pain and fall risk, ER daignosis of failure to thrive, She thought initially this was [facility], but can get reoriented. Recent hip fracture and repair and she was sent home from [facility] rehab recently and has been unable to ambulate and is a full assist per the son and he is worried about her memory as well as she is more confused. She has right hip pain, adn this has been ongoign, likely, Xray looks stable. 02/22/2022 No acute events overnight. Patient seen examined bedside. Potassium 3.4 replaced with PO KCl. Pending PT OT evaluation. Patient sitting up on bedside and alert and awake and oriented. Pain is well controlled. Vitals/I&O Vitals/I&O: Vital Signs Date Time Temp Pulse Resp B/P (MAP) Pulse Ox O2 Delivery O2 Flow Rate FiO2 02/27/22 07:00 97.9 101 18 163/80 (107) 95 Room Air 97.9 I & O 02/26/22 02/26/22 02/27/22 15:00 23:00 07:00 Intake Total 0 ml 150 ml Balance 0 ml 150 ml Physical Exam General: No acute distress, Other Heart: Regular rate Lungs: Clear Abdomen: Normal bowel sounds, Soft Extremities: No clubbing, No edema, Normal pulses Skin: No rashes, Other (lesion on right nasal, external taht looks like melanoma) Labs Labs: Laboratory Tests Test 02/26/22 11:51 SARS-CoV-2 Antigen (Rapid) Negative (NEGATIVE) Assessment and Plan Assessmemt and Plan Problems Medical Problems: (1) Failure to thrive in adult Status: Acute (2) Hypokalemia Status: Acute (3) 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 (Patient is not a great historian but states she had) Plan Was not accepted at [facility], so we have [facility] the patient for [facility] For now continue the following; PT OT Home meds DVT prophylaxis Full code Encourage p.o. intake Trend labs Hope to discharge to [facility] later today if she is [facility]? Comment Review of Relevant I have reviewed the following items yessenia (where applicable) has been applied. Justifications for Admission Other Justification WIL REINA III DO Feb 27, 2022 10:18
[2022-02-27 11:00] VITALS: BP 159/79
[2022-02-27 15:00] VITALS: BP 166/84
[2022-02-27] MEDS: oxyCODONE/APAP 5/325 1 TAB TABLET PO PRN (16:28)
[2022-02-27 19:00] VITALS: BP 143/56
[2022-02-27] MEDS: ENOXAPARIN 30 MG/0.3 ML SYRINGE. SQ SCH (20:18)
[2022-02-27 23:00] VITALS: BP 152/72
[2022-02-28 03:00] VITALS: BP 158/56
[2022-02-28 07:00] VITALS: BP 144/79
[2022-02-28] MEDS: DOCUSATE SODIUM 100 MG CAPSULE. PO SCH (08:53)
[2022-02-28 11:00] VITALS: BP 148/80
[2022-02-28 15:00] VITALS: BP 134/82
[2022-02-28 19:00] VITALS: BP 152/60
--- NOTE | 2022-02-28 19:55 | PDOC ---
[employer] [facility] PROGRESS NOTE Date of Service DOS: DATE: 02/28/22 TIME: 19:54 Chief Complaint Chief Complaint Recent right hip fracture Status post right hip ORIF recently Possible adult failure to thrive Weakness Dementia Hypokalemia Malnutrition Recent COVID? (Patient is not a great historian but states she had) History of Present Illness History of Present Illness 02/28 Patient evaluated examined at bedside no major clinical changes. Please find placement but having difficulty with this. Either way continue current. We marlen naik continue to work on placement. 02/27/2022 Patient seen and examined Discussed with RN Discussed with case management Her discharge to [facility] place had to be canceled as she was not accepted there She is now being evaluated by [facility] and [place] intermediate units 02/25/2022 Patient seen and examined She is still extremely weak pleasantly confused Discussed with RN and case management Patient does not want to go home I suspect we can get her to intermediate if she qualifies Perhaps she also needs long-term care? Chart reviewed Discussed with wound care nurse about her nasal wound yesterday 02/25/2020 Patient seen and examined She is pleasantly confused A lesion is noted on the right side of her nose I suspect it is a basal cell carcinoma Chart review Discussed with RN Discussed with case 86 year old female admit for right leg pain and fall risk, ER daignosis of failure to thrive, She thought initially this was [facility], but can get reoriented. Recent hip fracture and repair and she was sent home from [facility] rehab recently and has been unable to ambulate and is a full assist per the son and he is worried about her memory as well as she is more confused. She has right hip pain, adn this has been ongoign, likely, Xray looks stable. 02/22/2022 No acute events overnight. Patient seen examined bedside. Potassium 3.4 replaced with PO KCl. Pending PT OT evaluation. Patient sitting up on bedside and alert and awake and oriented. Pain is well controlled. Vitals/I&O Vitals/I&O: Vital Signs Date Time Temp Pulse Resp B/P (MAP) Pulse Ox O2 Delivery O2 Flow Rate FiO2 02/28/22 15:00 98.2 90 16 134/82 (99) 94 Room Air 98.2 I & O 02/27/22 02/27/22 02/28/22 15:00 23:00 07:00 Intake Total 0 ml 100 ml Balance 0 ml 100 ml Physical Exam General: No acute distress, Other Heart: Regular rate Lungs: Clear Abdomen: Normal bowel sounds, Soft Extremities: No clubbing, No edema, Normal pulses Skin: No rashes, Other (lesion on right nasal, external taht looks like melanoma) Assessment and Plan Assessmemt and Plan Problems Medical Problems: (1) Failure to thrive in adult Status: Acute (2) Hypokalemia Status: Acute (3) 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 Justifications for Admission Other Justification ROSE AKBAR MD Feb 28, 2022 19:55
[2022-02-28] MEDS: ENOXAPARIN 30 MG/0.3 ML SYRINGE. SQ SCH (21:06)
[2022-02-28 23:00] VITALS: BP 152/76
[2022-02-28] MEDS: oxyCODONE/APAP 5/325 1 TAB TABLET PO PRN (23:54)
[2022-03-01 03:00] VITALS: BP 143/68
[2022-03-01 07:00] VITALS: BP 147/45
[2022-03-01] MEDS: DOCUSATE SODIUM 100 MG CAPSULE. PO SCH (10:48)
[2022-03-01 11:16] VITALS: BP 166/81
[2022-03-01 15:18] VITALS: BP 111/52
[2022-03-01 19:25] VITALS: BP 160/75
[2022-03-01] MEDS: ENOXAPARIN 30 MG/0.3 ML SYRINGE. SQ SCH (21:48)
--- NOTE | 2022-03-01 22:54 | PDOC ---
[employer] [facility] PROGRESS NOTE Date of Service DOS: DATE: 03/01/22 TIME: 22:53 Chief Complaint Chief Complaint Recent right hip fracture Status post right hip ORIF recently Possible adult failure to thrive Weakness Dementia Hypokalemia Malnutrition Recent COVID? (Patient is not a great historian but states she had) History of Present Illness History of Present Illness 03/01 No changes continue current 02/28 Patient evaluated examined at bedside no major clinical changes. Please find placement but having difficulty with this. Either way continue current. We will continue to work on placement. 02/27/2022 Patient seen and examined Discussed with RN Discussed with case management Her discharge to [facility] place had to be canceled as she was not accepted there She is now being evaluated by [facility] and [facility] units 02/25/2022 Patient seen and examined She is still extremely weak pleasantly confused Discussed with RN and case management Patient does not want to go home I suspect we can get her to halfway if she qualifies Perhaps she also needs long-term care? Chart reviewed Discussed with wound care nurse about her nasal wound yesterday 02/25/2020 Patient seen and examined She is pleasantly confused A lesion is noted on the right side of her nose I suspect it is a basal cell carcinoma Chart review Discussed with RN Discussed with case 86 year old female admit for right leg pain and fall risk, ER daignosis of failure to thrive, She thought initially this was [facility], but can get reoriented. Recent hip fracture and repair and she was sent home from [facility] rehab recently and has been unable to ambulate and is a full assist per the son and he is worried about her memory as well as she is more confused. She has right hip pain, adn this has been ongoign, likely, Xray looks stable. 02/22/2022 No acute events overnight. Patient seen examined bedside. Potassium 3.4 replaced with PO KCl. Pending PT OT evaluation. Patient sitting up on bedside and alert and awake and oriented. Pain is well controlled. 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 Justifications for Admission Other Justification ROSE AKBAR MD Mar 01, 2022 22:54
[2022-03-01 23:24] VITALS: BP 184/83
[2022-03-02 02:58] VITALS: BP 165/83
[2022-03-02] MEDS: DOCUSATE SODIUM 100 MG CAPSULE. PO SCH (09:16)
[2022-03-02 11:00] VITALS: BP 159/80
[2022-03-02 15:00] VITALS: BP 125/75
--- NOTE | 2022-03-02 17:32 | PDOC ---
[facility] [facility] PROGRESS NOTE Date of Service DOS: DATE: 03/02/22 TIME: 17:31 Chief Complaint Chief Complaint Recent right hip fracture Status post right hip ORIF recently Possible adult failure to thrive Weakness Dementia Hypokalemia Malnutrition Recent COVID? (Patient is not a great historian but states she had) History of Present Illness History of Present Illness 03/02 No acute events overnight. Seen at bedside no major clinical changes. Continue current treatments. Placement. 03/01 No changes continue current 02/28 Patient evaluated examined at bedside no major clinical changes. find placement but having difficulty with this. Either way continue current. We will continue to work on placement. 02/27/2022 Patient seen and examined Discussed with RN Discussed with case management Her discharge to [facility] place had to be canceled as she was not accepted there She is now being evaluated by [facility] and [place] [facility] 02/25/2022 Patient seen and examined She is still extremely weak pleasantly confused Discussed with RN and case management Patient does not want to go home I suspect we can get her to detention if she qualifies Perhaps she also needs long-term care? Chart reviewed Discussed with wound care nurse about her nasal wound yesterday 02/25/2020 Patient seen and examined She is pleasantly confused A lesion is noted on the right side of her nose I suspect it is a basal cell carcinoma Chart review Discussed with RN Discussed with case 86 year old female admit for right leg pain and fall risk, ER daignosis of failure to thrive, She thought initially this was [facility], but can get reoriented. Recent hip fracture and repair and she was sent home from [facility] rehab recently and has been unable to ambulate and is a full assist per the son and he is worried about her memory as well as she is more confused. She has right hip pain, adn this has been ongoign, likely, Xray looks stable. 02/22/2022 No acute events overnight. Patient seen examined bedside. Potassium 3.4 replaced with PO KCl. Pending PT OT evaluation. Patient sitting up on bedside and alert and awake and oriented. Pain is well controlled. Vitals/I&O Vitals/I&O: Vital Signs Date Time Temp Pulse Resp B/P (MAP) Pulse Ox O2 Delivery O2 Flow Rate FiO2 03/02/22 15:00 97.4 93 18 125/75 (92) 97 Room Air 97.4 I & O 03/01/22 03/01/22 03/02/22 15:00 23:00 07:00 Intake Total 120 ml 100 ml 360 ml Balance 120 ml 100 ml 360 ml Physical Exam General: No acute distress, Other Heart: Regular rate Lungs: Clear Abdomen: Normal bowel sounds, Soft Extremities: No clubbing, No edema, Normal pulses Skin: No rashes, Other (lesion on right nasal, external taht looks like melanoma) Assessment and Plan Assessmemt and Plan Problems Medical Problems: (1) Failure to thrive in adult Status: Acute (2) Hypokalemia Status: Acute (3) 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 Justifications for Admission Other Justification ROSE AKBAR MD Mar 02, 2022 17:32
[2022-03-02 19:30] VITALS: BP 152/85
[2022-03-02] MEDS: ENOXAPARIN 30 MG/0.3 ML SYRINGE. SQ SCH (20:06)
[2022-03-02 23:20] VITALS: BP 144/64
[2022-03-03 03:06] VITALS: BP 151/69
[2022-03-03 07:00] VITALS: BP 145/66
--- NOTE | 2022-03-03 09:40 | PDOC ---
[facility] PROGRESS NOTE Date of Service DOS: DATE: 03/03/22 TIME: 09:38 Chief Complaint Chief Complaint Recent right hip fracture Status post right hip ORIF recently Possible adult failure to thrive Weakness Dementia Hypokalemia Malnutrition Recent COVID? (Patient is not a great historian but states she had) History of Present Illness History of Present Illness 03/03 Patient evaluate examined at bedside. Clinically stable. Working on placement. Patient needs DPOA for placement. If cannot find then home d/c 03/02 No acute events overnight. Seen at bedside no major clinical changes. Continue current treatments. Placement. 03/01 No changes continue current 02/28 Patient evaluated examined at bedside no major clinical changes. find placement but having difficulty with this. Either way continue current. We will continue to work on placement. 02/27/2022 Patient seen and examined Discussed with RN Discussed with case management Her discharge to [facility] had to be canceled as she was not accepted there She is now being evaluated by [facility] and [place] [facility] units 02/25/2022 Patient seen and examined She is still extremely weak pleasantly confused Discussed with RN and case management Patient does not want to go home I suspect we can get her to shelter if she qualifies Perhaps she also needs long-term care? Chart reviewed Discussed with wound care nurse about her nasal wound yesterday 02/25/2020 Patient seen and examined She is pleasantly confused A lesion is noted on the right side of her nose I suspect it is a basal cell carcinoma Chart review Discussed with RN Discussed with case 86 year old female admit for right leg pain and fall risk, ER daignosis of failure to thrive, She thought initially this was [facility], but can get reoriented. Recent hip fracture and repair and she was sent home from [facility] rehab recently and has been unable to ambulate and is a full assist per the son and he is worried about her memory as well as she is more confused. She has right hip pain, adn this has been ongoign, likely, Xray looks stable. 02/22/2022 No acute events overnight. Patient seen examined bedside. Potassium 3.4 replaced with PO KCl. Pending PT OT evaluation. Patient sitting up on bedside and alert and awake and oriented. Pain is well controlled. Vitals/I&O Vitals/I&O: Vital Signs Date Time Temp Pulse Resp B/P (MAP) Pulse Ox O2 Delivery O2 Flow Rate FiO2 03/03/22 07:00 98.4 96 18 145/66 (92) 96 Room Air 98.4 I & O 03/02/22 03/02/22 03/03/22 15:00 23:00 07:00 Intake Total 240 ml 240 ml Balance 240 ml 240 ml Physical Exam General: No acute distress, Other Heart: Regular rate Lungs: Clear Abdomen: Normal bowel sounds, Soft Extremities: No clubbing, No edema, Normal pulses Skin: No rashes, Other (lesion on right nasal, external taht looks like melanoma) Assessment and Plan Assessmemt and Plan Problems Medical Problems: (1) Failure to thrive in adult Status: Acute (2) Hypokalemia Status: Acute (3) 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 Justifications for Admission Other Justification ROSE AKBAR MD Mar 03, 2022 09:39
[2022-03-03 11:00] VITALS: BP 146/66
[2022-03-03] MEDS: DOCUSATE SODIUM 100 MG CAPSULE. PO SCH (11:44)
[2022-03-03 15:00] VITALS: BP 136/58
[2022-03-03 19:00] VITALS: BP 153/82
[2022-03-03] MEDS: ENOXAPARIN 30 MG/0.3 ML SYRINGE. SQ SCH (20:14)
[2022-03-03 23:04] VITALS: BP 144/66
[2022-03-04 03:30] VITALS: BP 149/77
[2022-03-04 07:00] VITALS: BP 145/64
[2022-03-04] MEDS: DOCUSATE SODIUM 100 MG CAPSULE. PO SCH (08:45)
[2022-03-04 11:00] VITALS: BP 139/61
--- NOTE | 2022-03-04 12:57 | PDOC ---
[facility] PROGRESS NOTE Date of Service DOS: DATE: 03/04/22 TIME: 12:57 Chief Complaint Chief Complaint Recent right hip fracture Status post right hip ORIF recently Possible adult failure to thrive Weakness Dementia Hypokalemia Malnutrition Recent COVID? (Patient is not a great historian but states she had) History of Present Illness History of Present Illness 03/04 Evaluate examined at bedside. Social work to reach out to patient's family member regarding DPOA plans. They still do not want to be able discharged today with home health. 03/03 Patient evaluate examined at bedside. Clinically stable. Working on placement. Patient needs DPOA for placement. If cannot find then home d/c 03/02 No acute events overnight. Seen at bedside no major clinical changes. Continue current treatments. Placement. 03/01 No changes continue current 02/28 Patient evaluated examined at bedside no major clinical changes. find placement but having difficulty with this. Either way continue current. We will continue to work on placement. 02/27/2022 Patient seen and examined Discussed with RN Discussed with case management Her discharge to [facility] had to be canceled as she was not accepted there She is now being evaluated by [facility] and [place] [facility] 02/25/2022 Patient seen and examined She is still extremely weak pleasantly confused Discussed with RN and case management Patient does not want to go home I suspect we can get her to senior care if she qualifies Perhaps she also needs long-term care? Chart reviewed Discussed with wound care nurse about her nasal wound yesterday 02/25/2020 Patient seen and examined She is pleasantly confused A lesion is noted on the right side of her nose I suspect it is a basal cell carcinoma Chart review Discussed with RN Discussed with case 86 year old female admit for right leg pain and fall risk, ER daignosis of failure to thrive, She thought initially this was [facility], but can get reoriented. Recent hip fracture and repair and she was sent home from [facility] rehab recently and has been unable to ambulate and is a full assist per the son and he is worried about her memory as well as she is more confused. She has right hip pain, adn this has been ongoign, likely, Xray looks stable. 02/22/2022 No acute events overnight. Patient seen examined bedside. Potassium 3.4 replaced with PO KCl. Pending PT OT evaluation. Patient sitting up on bedside and alert and awake and oriented. Pain is well controlled. Vitals/I&O Vitals/I&O: Vital Signs Date Time Temp Pulse Resp B/P (MAP) Pulse Ox O2 Delivery O2 Flow Rate FiO2 03/04/22 11:00 97.8 112 16 139/61 (87) 94 Room Air 97.8 I & O 03/03/22 03/03/22 03/04/22 15:00 23:00 07:00 Intake Total 100 ml Balance 100 ml Physical Exam General: No acute distress, Other Heart: Regular rate Lungs: Clear Abdomen: Normal bowel sounds, Soft Extremities: No clubbing, No edema, Normal pulses Skin: No rashes, Other (lesion on right nasal, external taht looks like melanoma) Assessment and Plan Assessmemt and Plan Problems Medical Problems: (1) Failure to thrive in adult Status: Acute (2) Hypokalemia Status: Acute (3) 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 Justifications for Admission Other Justification ROSE AKBAR MD Mar 04, 2022 12:57
[2022-03-04 15:00] VITALS: BP 149/76
--- NOTE | 2022-03-04 17:07 | NUR ---
continues to be sleepy. will arouse to name . continues to refuse to eat. she has had 2 containers of ensure and a side salad. refused all other options. when OT/PT was getting her up today. she did have an episode of orthostatic blood pressure when sitting to standing and sitting in chair. lightheadedness was relieved upon sitting. heart rate remains irregular. no shortness of air.
[2022-03-04 19:00] VITALS: BP 102/66
[2022-03-04] MEDS: ENOXAPARIN 30 MG/0.3 ML SYRINGE. SQ SCH (21:44)
[2022-03-04 23:00] VITALS: BP 147/69
[2022-03-05 03:00] VITALS: BP 142/70
[2022-03-05 07:00] VITALS: BP 120/59
[2022-03-05] MEDS: DOCUSATE SODIUM 100 MG CAPSULE. PO SCH (08:41)
[2022-03-05 11:00] VITALS: BP 122/66
[2022-03-05] MEDS: oxyCODONE/APAP 5/325 1 TAB TABLET PO PRN (12:28)
[2022-03-05 15:00] VITALS: BP 125/60
[2022-03-05 19:00] VITALS: BP 120/57
[2022-03-05] MEDS: ENOXAPARIN 30 MG/0.3 ML SYRINGE. SQ SCH (21:34)
--- NOTE | 2022-03-05 22:07 | PDOC ---
[facility] PROGRESS NOTE Date of Service DOS: DATE: 03/05/22 TIME: 22:06 Chief Complaint Chief Complaint Recent right hip fracture Status post right hip ORIF recently Possible adult failure to thrive Weakness Dementia Hypokalemia Malnutrition Recent COVID? (Patient is not a great historian but states she had) History of Present Illness History of Present Illness 03/05 Evaluate examined at bedside. Family supposed to come tonight to fill out DPOA paperwork. Once done discharge to SNF. Hope for discharge tomorrow. 03/04 Evaluate examined at bedside. Social work to reach out to patient's family member regarding DPOA plans. They still do not want to be able discharged today with home health. 03/03 Patient evaluate examined at bedside. Clinically stable. Working on placement. Patient needs DPOA for placement. If cannot find then home d/c 03/02 No acute events overnight. Seen at bedside no major clinical changes. Continue current treatments. Placement. 03/01 No changes continue current 02/28 Patient evaluated examined at bedside no major clinical changes. find placement but having difficulty with this. Either way continue current. We will continue to work on placement. 02/27/2022 Patient seen and examined Discussed with RN Discussed with case management Her discharge to [facility] had to be canceled as she was not accepted there She is now being evaluated by [facility] and [place] [facility] 02/25/2022 Patient seen and examined She is still extremely weak pleasantly confused Discussed with RN and case management Patient does not want to go home I suspect we can get her to correction if she qualifies Perhaps she also needs long-term care? Chart reviewed Discussed with wound care nurse about her nasal wound yesterday 02/25/2020 Patient seen and examined She is pleasantly confused A lesion is noted on the right side of her nose I suspect it is a basal cell carcinoma Chart review Discussed with RN Discussed with case 86 year old female admit for right leg pain and fall risk, ER daignosis of failure to thrive, She thought initially this was [facility], but can get reoriented. Recent hip fracture and repair and she was sent home from [facility] rehab recently and has been unable to ambulate and is a full assist per the son and he is worried about her memory as well as she is more confused. She has right hip pain, adn this has been ongoign, likely, Xray looks stable. 02/22/2022 No acute events overnight. Patient seen examined bedside. Potassium 3.4 replaced with PO KCl. Pending PT OT evaluation. Patient sitting up on bedside and alert and awake and oriented. Pain is well controlled. Vitals/I&O Vitals/I&O: Vital Signs Date Time Temp Pulse Resp B/P (MAP) Pulse Ox O2 Delivery O2 Flow Rate FiO2 03/05/22 19:00 97.9 98 14 120/57 (78) 95 Room Air 97.9 I & O 03/04/22 03/04/22 03/05/22 15:00 23:00 07:00 Intake Total 200 ml 0 ml 0 ml Balance 200 ml 0 ml 0 ml Physical Exam General: No acute distress, Other Heart: Regular rate Lungs: Clear Abdomen: Normal bowel sounds, Soft Extremities: No clubbing, No edema, Normal pulses Skin: No rashes, Other (lesion on right nasal, external taht looks like melanoma) Assessment and Plan Assessmemt and Plan Problems Medical Problems: (1) Failure to thrive in adult Status: Acute (2) Hypokalemia Status: Acute (3) 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 Justifications for Admission Other Justification ROSE AKBAR MD Mar 05, 2022 22:07
[2022-03-05 23:00] VITALS: BP 133/70
[2022-03-06 03:00] VITALS: BP 140/55
[2022-03-06 07:00] VITALS: BP 138/66
[2022-03-06] MEDS: DOCUSATE SODIUM 100 MG CAPSULE. PO SCH (08:58)
[2022-03-06 10:53] VITALS: BP 120/74
[2022-03-06] MEDS: oxyCODONE/APAP 5/325 1 TAB TABLET PO PRN ×2 (11:48→15:50)
--- NOTE | 2022-03-06 12:56 | SNU/HH DC ---
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
[2022-03-06 15:00] VITALS: BP 159/69
[2022-03-06 19:00] VITALS: BP 128/62
[2022-03-06] MEDS: ENOXAPARIN 30 MG/0.3 ML SYRINGE. SQ SCH (20:39)
--- NOTE | 2022-03-06 21:05 | PDOC ---
[facility] PROGRESS NOTE Date of Service DOS: DATE: 03/06/22 TIME: 21:05 Chief Complaint Chief Complaint Recent right hip fracture Status post right hip ORIF recently Possible adult failure to thrive Weakness Dementia Hypokalemia Malnutrition Recent COVID? (Patient is not a great historian but states she had) History of Present Illness History of Present Illness 03/06 seen examined at bedside. no major chagnes. d/c to facility tomorrow. 03/05 Evaluate examined at bedside. Family supposed to come tonight to fill out DPOA paperwork. Once done discharge to SNF. Hope for discharge tomorrow. 03/04 Evaluate examined at bedside. Social work to reach out to patient's family member regarding DPOA plans. They still do not want to be able discharged today with home health. 03/03 Patient evaluate examined at bedside. Clinically stable. Working on placement. Patient needs DPOA for placement. If cannot find then home d/c 03/02 No acute events overnight. Seen at bedside no major clinical changes. Continue current treatments. Placement. 03/01 No changes continue current 02/28 Patient evaluated examined at bedside no major clinical changes. find placement but having difficulty with this. Either way continue current. We will continue to work on placement. 02/27/2022 Patient seen and examined Discussed with RN Discussed with case management Her discharge to [facility] had to be canceled as she was not accepted there She is now being evaluated by [facility] and [place] [facility] 02/25/2022 Patient seen and examined She is still extremely weak pleasantly confused Discussed with RN and case management Patient does not want to go home I suspect we can get her to [facility] if she qualifies Perhaps she also needs long-term care? Chart reviewed Discussed with wound care nurse about her nasal wound yesterday 02/25/2020 Patient seen and examined She is pleasantly confused A lesion is noted on the right side of her nose I suspect it is a basal cell carcinoma Chart review Discussed with RN Discussed with case 86 year old female admit for right leg pain and fall risk, ER daignosis of failure to thrive, She thought initially this was [facility], but can get reoriented. Recent hip fracture and repair and she was sent home from [facility] rehab recently and has been unable to ambulate and is a full assist per the son and he is worried about her memory as well as she is more confused. She has right hip pain, adn this has been ongoign, likely, Xray looks stable. 02/22/2022 No acute events overnight. Patient seen examined bedside. Potassium 3.4 replaced with PO KCl. Pending PT OT evaluation. Patient sitting up on bedside and alert and awake and oriented. Pain is well controlled. Vitals/I&O Vitals/I&O: Vital Signs Date Time Temp Pulse Resp B/P (MAP) Pulse Ox O2 Delivery O2 Flow Rate FiO2 03/06/22 19:00 97.7 84 16 128/62 (84) 93 Room Air 97.7 I & O 03/05/22 03/05/22 03/06/22 15:00 23:00 07:00 Intake Total 200 ml 100 ml Balance 200 ml 100 ml Physical Exam General: No acute distress, Other Heart: Regular rate Lungs: Clear Abdomen: Normal bowel sounds, Soft Extremities: No clubbing, No edema, Normal pulses Skin: No rashes, Other (lesion on right nasal, external taht looks like melanoma) Assessment and Plan Assessmemt and Plan Problems Medical Problems: (1) Failure to thrive in adult Status: Acute (2) Hypokalemia Status: Acute (3) 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 Justifications for Admission Other Justification ROSE AKBAR MD Mar 06, 2022 21:05
[2022-03-06 23:18] VITALS: BP 139/60
[2022-03-07 07:00] VITALS: BP 162/68
[2022-03-07] MEDS: DOCUSATE SODIUM 100 MG CAPSULE. PO SCH (08:24)
[2022-03-07 10:42] VITALS: BP 134/62
--- NOTE | 2022-03-07 11:18 | NUR ---
Discharge Note: MARIA TERESA ALVAREZ Discharge instructions and discharge home medications reviewed with Other facility and a copy given. All questions have been answered and understanding verbalized. Report given to CARLOTA Kenny at [facility]. The following instructions and handouts were given: activity, follow up, diet, tests, skin, diet. Discontinued lines and drains: no IV line present. Patient discharged to [facility] with transportation officer, wheelchair used for mobility to discharge vehicle.
--- NOTE | 2022-03-14 22:43 | PDOC3 ---
[facility]-Discharge Summary Date of Admission: Date of Admission: Feb 23, 2022 Date of Discharge: Date of Discharge: Mar 07, 2022 Admission Diagnosis: Admitting Diagnosis: hip fracture, ftt Hospital Course: Hospital Course: Chief Complaint Recent right hip fracture Status post right hip ORIF recently Possible adult failure to thrive Weakness Dementia Hypokalemia Malnutrition Recent COVID? (Patient is not a great historian but states she had) History of Present Illness History of Present Illness 03/07 seen at bedside. d/c today 03/06 seen examined at bedside. no major chagnes. d/c to facility tomorrow. 03/05 Evaluate examined at bedside. Family supposed to come tonight to fill out DPOA paperwork. Once done discharge to SNF. Hope for discharge tomorrow. 03/04 Evaluate examined at bedside. Social work to reach out to patient's family m ember regarding DPOA plans. They still do not want to be able discharged today with home health. 03/03 Patient evaluate examined at bedside. Clinically stable. Working on placement. Patient needs DPOA for placement. If cannot find then home d/c 03/02 No acute events overnight. Seen at bedside no major clinical changes. Continue current treatments. Placement. 03/01 No changes continue current 02/28 Patient evaluated examined at bedside no major clinical changes. find placement but having difficulty with this. Either way continue current. We will continue to work on placement. 02/27/2022 Patient seen and examined Discussed with RN Discussed with case management Her discharge to [facility] had to be canceled as she was not accepted there She is now being evaluated by [facility] and [place] [facility] units 02/25/2022 Patient seen and examined She is still extremely weak pleasantly confused Discussed with RN and case management Patient does not want to go home I suspect we can get her to shelter if she qualifies Perhaps she also needs long-term care? Chart reviewed Discussed with wound care nurse about her nasal wound yesterday 02/25/2020 Patient seen and examined She is pleasantly confused A lesion is noted on the right side of her nose I suspect it is a basal cell carcinoma Chart review Discussed with RN Discussed with case 86 year old female admit for right leg pain and fall risk, ER daignosis of failure to thrive, She thought initially this was [facility], but can get reoriented. Recent hip fracture and repair and she was sent home from [facility] rehab recently and has been unable to ambulate and is a full assist per the son and he is worried about her memory as well as she is more confused. She has right hip pain, adn this has been ongoign, likely, Xray looks stable. 02/22/2022 No acute events overnight. Patient seen examined bedside. Potassium 3.4 replaced with PO KCl. Pending PT OT evaluation. Patient sitting up on bedside and alert and awake and oriented. Pain is well controlled. Disposition: Disposition/Orders: D/C to Another Facility Activity: Activity: Resume previous activity Diet: Diet: Regular Justicifation of Admission Dx: Justifications for Admission: Justification of Admission Dx: Yes (fracture) ROSE AKBAR MD Mar 14, 2022 22:42
== END 2022-03-07 11:18 | DRG 640 ==
LOC: ER 11:41 → 4 NORTH 14:46 → OBSVTOIN 02-22 21:30
PROVIDERS: ADMIT Internal Medicine; ATTEND Internal Medicine
DX: E87.6 Hypokalemia (principal); E43 Unspecified severe protein-calorie malnutrition; Z68.1 Body mass index [BMI] 19.9 or less, adult; R62.7 Adult failure to thrive; M62.81 Muscle weakness (generalized); Z87.81 Personal history of (healed) traumatic fracture; D72.829 Elevated white blood cell count, unspecified; Z96.641 Presence of right artificial hip joint; F03.90 Unspecified dementia, unspecified severity, without behavioral disturbance, psychotic disturbance, mood disturbance, and anxiety; Z91.81 History of falling; Z88.0 Allergy status to penicillin; Z88.2 Allergy status to sulfonamides
CPT/HCPCS: 36415; 73502; 80053; 83880; 84443; 84484; 85025; 85610; 85730; 87426; 93005; G0378; G0379; J1650; J3480; U0003; 97110-GO; 97110-GP; 97530-GO; 97530-GP; 97535-GO; 99285-25